=== PATIENT | female | born 1940 | race Caucasian/White ===

== ENCOUNTER → 2019-04-07 | Outpatient (CLI) | payer MEDICARE ==
[~2019-04-07] MED LIST: JANUVIA; LOSARTAN POTASS25 MG; PLAVIX75 MG
== END ==
LOC: RAD 10:21
PROVIDERS: ATTEND Specialist
DX: R22.41 Localized swelling, mass and lump, right lower limb (principal)
CPT/HCPCS: 93971

== ENCOUNTER → 2019-04-15 | Outpatient (CLI) | payer MEDICARE ==
--- NOTE | 2019-04-15 12:19 | Diagnostic Imaging Report ---
Right knee MRI without contrast. History: Knee pain. Strain. Decreased range of motion. Comparison: None. Technique: Multiplanar multi-sequence MRI of the knee without contrast. Findings: Medial compartment: Complex tear involving the posterior horn and body segment of the medial meniscus. Articular cartilage fraying and deep fissuring in the medial compartment with mild underlying bone marrow edema. The medial collateral ligament complex is intact Lateral compartment: No meniscal tear or cartilage abnormality. The LCL complex is normal. Intercondylar notch: Mid substance degeneration with scarring of the anterior cruciate ligament. The anterior cruciate ligament has a celery stalk appearance with intrasubstance ganglion likely due to a prior partial tear. Intact fibers are seen. The posterior cruciate ligament is intact. Patellofemoral compartment: Articular cartilage fraying and fissuring in the patellofemoral compartment. Extensor mechanism: The quadriceps and patellar tendons are normal. Other findings: There is a joint effusion and synovitis. There is no acute fracture, subluxation or avascular necrosis. 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 Mid substance degeneration with scarring of the anterior cruciate ligament. The anterior cruciate ligament has a celery stalk appearance with intrasubstance ganglion likely due to a prior partial tear. Intact fibers are seen. Signed by: Dr. Ventura Agustin M.D. on 04/15/2019 12:16 PM
== END ==
LOC: MRI 10:26
PROVIDERS: ATTEND Specialist
DX: S86.111A Strain of other muscle(s) and tendon(s) of posterior muscle group at lower leg level, right leg, initial encounter (principal)